=== PATIENT | female | born 1990 | race Caucasian/White ===

== ENCOUNTER 2019-02-23 11:13 | Emergency (ER) | payer OTHER ==
[2019-02-23] MEDS ORDERED: TETANUS & DIPHTHERIA TOX,ADULT 0.5 ML VIAL ONE (12:53)
[2019-02-23] MEDS ORDERED: LIDOCAINE 1% MPF 30 ML VIAL ONE (12:54)
--- NOTE | 2019-02-23 14:39 | ER ---
Nurse's Notes [facility] Name: Esperanza Shelton Age: 28 yrs Sex: Female : 1990 Arrival Date: 02/23/2019 Time: 11:16 Bed 9 Private MD: Diagnosis: Bitten by dog;Laceration without foreign body of foot Presentation: 02/23 11:43 Care prior to arrival: None. aa5 11:43 Presenting complaint: Patient states: "my friend's dog bit me about 30 minutes ago". aa5 Bite noted to left hand and left ankle, no active bleeding noted. Transition of care: patient was not received from another setting of care. Onset of symptoms was February 23, 2019. Risk Assessment: Do you want to hurt yourself or someone else? Patient reports no desire to harm self or others. Initial Sepsis Screen: Does the patient meet any 2 criteria? No. Patient's initial sepsis screen is negative. Does the patient have a suspected source of infection? No. Patient's initial sepsis screen is negative. 11:43 Acuity: DARRIN 4 aa5 11:43 Method Of Arrival: Wheelchair aa5 Triage Assessment: 11:55 General: Appears uncomfortable, Behavior is calm, cooperative. Pain: Complains of pain aa5 in left Achilles and left hand and left wrist Pain does not radiate. Pain currently is 9 out of 10 on a pain scale. Quality of pain is described as tender, throbbing, Is continuous. EENT: No signs and/or symptoms were reported regarding the EENT system. Neuro: Level of Consciousness is awake, alert, obeys commands, Oriented to person, place, time, situation. Cardiovascular: Patient's skin is warm and dry. Respiratory: Airway is patent Respiratory effort is even, unlabored, Respiratory pattern is regular, symmetrical. GI: No signs and/or symptoms were reported involving the gastrointestinal system. : No signs and/or symptoms were reported regarding the genitourinary system. Derm: Skin is pink, warm \\T\\ dry. Dog bite noted to palmar aspect of left hand, left wrist, and left achilles/left ankle. Laceration noted to left achilles. Cleaned with hydrogen peroxide and saline, dressed with gauze and Kerlix. Musculoskeletal: Range of motion: intact in all extremities. 12:38 Bite description: bite sustained to left hand and left ankle by a dog, tracey , aa5 animal information: vaccination(s) is current. 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 - Social history:: Smoking status: Patient uses tobacco products, smokes one pack cigarettes per day. - Ebola Screening: : No symptoms or risks identified at this time. Screenin:00 Abuse screen: Denies threats or abuse. Denies injuries from another. Nutritional hb screening: No deficits noted. Tuberculosis screening: No symptoms or risk factors identified. Fall Risk None identified. Assessment: 12:39 Reassessment: Pt reports dog bite occurred in [place], [place]. [place] [facility] was notified. . aa5 12:56 Reassessment: Patient is alert, oriented x 3, equal unlabored respirations, skin aa5 warm/dry/pink. PD called back and stated pt is to follow-up at PD after d/c home. Pt was notified and verbalizes understanding. . 14:00 Reassessment: Patient appears in no apparent distress at this time. Patient and/or hb family updated on plan of care and expected duration. Pain level reassessed. Patient is alert, oriented x 3, equal unlabored respirations, skin warm/dry/pink. 15:00 Reassessment: Patient appears in no apparent distress at this time. Patient and/or hb family updated on plan of care and expected duration. Pain level reassessed. Patient is alert, oriented x 3, equal unlabored respirations, skin warm/dry/pink. Vital Signs: 11:46 BP 127 / 87; Pulse 87; Resp 18 S; Temp 98.0(TE); Pulse Ox 100% on R/A; Weight 116.12 kg aa5 (R); Height 6 ft. 0 in. (182.88 cm) (R); Pain 9/10; 14:00 BP 126 / 76; Pulse 88; Resp 16; Pulse Ox 99% on R/A; hb 11:46 Body Mass Index 34.72 (116.12 kg, 182.88 cm) aa5 ED Course: 11:16 Patient arrived in ED. mr 11:43 Arm band placed on. aa5 11:45 Triage completed. aa5 11:55 Elissa Mahan, RN is Primary Nurse. aa5 11:56 Gissel Kenyon FNP-C [facility]. kb 11:56 Ruddy Chan MD is Attending Physician. kb 13:00 Patient has correct armband on for positive identification. Call light in reach. hb 15:20 No provider procedures requiring assistance completed. Patient did not have IV access hb during this emergency room visit. 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 Exp: aa5 08/31/2020. Lot #: [id number]. } Route: IM; Site: left deltoid; 13:30 Follow up: Response: No adverse reaction hb 13:10 Drug: Lidocaine (1 %) 1 vials Volume: 20 ml; Route: Infiltration; hb 13:30 Follow up: Response: No adverse reaction hb 15:19 Drug: Augmentin 875 mg Route: PO; hb 15:19 Follow up: Response: Medication administered at discharge. hb Outcome: 14:39 Discharge ordered by MD. kb 15:20 Discharged to home ambulatory, with family. hb 15:20 Condition: stable 15:20 Discharge instructions given to patient, family, Instructed on discharge instructions, follow up and referral plans. medication usage, wound care, Demonstrated understanding of instructions, follow-up care, medications, wound care, Prescriptions given X 1. 15:21 Patient left the ED. hb Signatures: Gissel Kenyon FNP-C [facility]-Marv Vinita Venegas Elissa Mahan, RN RN aa5 Alicia Hooper RN RN hb Corrections: (The following items were deleted from the chart) 11:54 11:43 Presenting complaint: Patient states: "my friend's dog bit me about 30 minutes aa5 ago". Bite noted to left hand, no active bleeding noted. aa5
--- NOTE | 2019-02-23 14:39 | EDPHYS ---
Physician Documentation [facility] Name: Esperanza Shelton Age: 28 yrs Sex: Female : 1990 Arrival Date: 02/23/2019 Time: 11:16 Bed 9 Private MD: ED Physician Ruddy Chan HPI: 02/23 13:37 This 28 yrs old Female presents to ER via Wheelchair with complaints of Dog kb Bite. 13:37 The patient was bitten on the left heel and left hand and left wrist, by a dog, in an kb unprovoked manner, at a friend's house, outdoors. Onset: The symptoms/episode began/occurred just prior to arrival. Secondary to the bite the patient reports an abrasion, multiple lacerations, that are deep, with the longest being 8 cm(s), and the total laceration length being 11 cm(s), pain, multiple puncture wounds, that are superficial. Associated signs and symptoms: Pertinent positives: tenderness. Severity of symptoms: At their worst the symptoms were moderate, in the emergency department the symptoms are unchanged. The patient has not experienced similar symptoms in the past. The patient has not recently seen a physician. 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 - Social history:: Smoking status: Patient uses tobacco products, smokes one pack cigarettes per day. - Ebola Screening: : No symptoms or risks identified at this time. ROS: 13:36 Constitutional: Negative for fever, chills, and weight loss, Neck: Negative for injury, kb pain, and swelling, Cardiovascular: Negative for chest pain, palpitations, and edema, Respiratory: Negative for shortness of breath, cough, wheezing, and pleuritic chest pain, Abdomen/GI: Negative for abdominal pain, nausea, vomiting, diarrhea, and constipation, Back: Negative for injury and pain, MS/Extremity: Negative for injury and deformity, Neuro: Negative for headache, weakness, numbness, tingling, and seizure. 13:36 Skin: Positive for abrasion(s), laceration(s), puncture, of the left heel and left hand and left wrist. Exam: 13:33 Constitutional: This is a well developed, well nourished patient who is awake, alert, kb and in no acute distress. Head/Face: Normocephalic, atraumatic. ENT: Nares patent. No nasal discharge, no septal abnormalities noted. Tympanic membranes are normal and external auditory canals are clear. Oropharynx with no redness, swelling, or masses, exudates, or evidence of obstruction, uvula midline. Mucous membranes moist. Neck: Trachea midline, no thyromegaly or masses palpated, and no cervical lymphadenopathy. Supple, full range of motion without nuchal rigidity, or vertebral point tenderness. No Meningismus. Chest/axilla: Normal chest wall appearance and motion. Nontender with no deformity. No lesions are appreciated. Cardiovascular: Regular rate and rhythm with a normal S1 and S2. No gallops, murmurs, or rubs. Normal PMI, no JVD. No pulse deficits. Respiratory: Lungs have equal breath sounds bilaterally, clear to auscultation and percussion. No rales, rhonchi or wheezes noted. No increased work of breathing, no retractions or nasal flaring. Abdomen/GI: Soft, non-tender, with normal bowel sounds. No distension or tympany. No guarding or rebound. No evidence of tenderness throughout. MS/ Extremity: Pulses equal, no cyanosis. Neurovascular intact. Full, normal range of motion. Neuro: Awake and alert, GCS 15, oriented to person, place, time, and situation. Cranial nerves II-XII grossly intact. Motor strength 5/5 in all extremities. Sensory grossly intact. Cerebellar exam normal. Normal gait. 13:33 Skin: injury, bite(s), superficial, deep, of the left wrist, left hand and left heel, abrasions and punctures to left hand and wrist, no repairs needed; left posterior heel has 8cm laceration and 3cm laceration that require repair. . Vital Signs: 11:46 BP 127 / 87; Pulse 87; Resp 18 S; Temp 98.0(TE); Pulse Ox 100% on R/A; Weight 116.12 kg aa5 (R); Height 6 ft. 0 in. (182.88 cm) (R); Pain 9/10; 14:00 BP 126 / 76; Pulse 88; Resp 16; Pulse Ox 99% on R/A; hb 11:46 Body Mass Index 34.72 (116.12 kg, 182.88 cm) aa5 Laceration: 14:52 Wound Repair of 8cm ( 3.1in ) subcutaneous laceration to left heel. Linear shaped.. kb Distal neuro/vascular/tendon intact. Anesthesia: Wound infiltrated with 4 mls of 1% lidocaine. Wound prep: Extensive cleansing with hibiclenz by me, Wound irrigation with saline by me, soaked foot in betadine/ns mixture prior to cleaning. Skin closed with 9 4-0 Prolene using simple sutures and sterile technique. Dressed with Neosporin, 4x4's. Patient tolerated well. 14:52 Wound Repair of 3cm ( 1.2in ) subcutaneous laceration to left heel. Linear shaped.. kb Distal neuro/vascular/tendon intact. Anesthesia: Wound infiltrated with 2 mls of 1% lidocaine. Wound prep: Extensive cleansing with hibiclenz by me, Wound irrigation with saline by me. Skin closed with 3 4-0 Prolene using simple sutures and sterile technique. Dressed with Neosporin, 4x4's. Patient tolerated well. MDM: 11:56 Patient medically screened. kb 13:33 Data reviewed: vital signs, nurses notes. Data interpreted: Pulse oximetry: on room air kb is 100 %. Interpretation: normal. 14:37 Counseling: I had a detailed discussion with the patient and/or guardian regarding: the kb historical points, exam findings, and any diagnostic results supporting the discharge/admit diagnosis, the need for outpatient follow up, a family practitioner, to return to the emergency department if symptoms worsen or persist or if there are any questions or concerns that arise at home. 02/23 12:26 Order name: Prolene, Sutures; Complete Time: 12:56 kb 02/23 12:26 Order name: Dressing - Wound; Complete Time: 15:19 kb 02/23 12:26 Order name: Gloves, Sterile; Complete Time: 12:56 kb 02/23 12:26 Order name: Setup Suture Tray; Complete Time: 12:56 kb 02/23 12:26 Order name: Misc. Order: report to PD; Complete Time: 12:36 kb 02/23 13:24 Order name: Misc. 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 Exp: aa5 08/31/2020. Lot #: [id number]. } Route: IM; Site: left deltoid; 13:30 Follow up: Response: No adverse reaction hb 13:10 Drug: Lidocaine (1 %) 1 vials Volume: 20 ml; Route: Infiltration; hb 13:30 Follow up: Response: No adverse reaction hb 15:19 Drug: Augmentin 875 mg Route: PO; hb 15:19 Follow up: Response: Medication administered at discharge. hb Disposition: 02/23/19 14:39 Discharged to Home. Impression: Bitten by dog, Laceration without foreign body of foot. - Condition is Stable. - Discharge Instructions: Animal Bite, [id number], Laceration Care, Adult, [id number]. - Prescriptions for Augmentin 875- 125 mg Oral Tablet - take 1 tablet by ORAL route every 12 hours for 10 days; 20 tablet. - Medication Reconciliation Form, Thank You Letter, Antibiotic Education, Prescription Opioid Use form. - Follow up: Emergency Department; When: As needed; Reason: Worsening of condition. Follow up: Private Physician; When: 2 - 3 days; Reason: Recheck today's complaints, Continuance of care, Re-evaluation by your physician. Addendum: 02/26/2019 10:07 Co-signature as Attending Physician, Ruddy Chan MD I agree with the assessment and k dr plan of care. Signatures: Gissel Kenyon, SERVICE DESK DIRECTOR-C SERVICE DESK DIRECTOR-Ckb Ruddy Chan MD MD [facility] Elissa Mahan, RN RN aa5 Alicia Hooper, ROXANNA RN Corrections: (The following items were deleted from the chart) 02/23 15:21 14:39 02/23/2019 14:39 Discharged to Home. Impression: Bitten by dog; Laceration hb without foreign body of foot. Condition is Stable. Forms are Medication Reconciliation Form, Thank You Letter, Antibiotic Education, Prescription Opioid Use. Follow up: Emergency Department; When: As needed; Reason: Worsening of condition. Follow up: Private Physician; When: 2 - 3 days; Reason: Recheck today's complaints, Continuance of care, Re-evaluation by your physician. kb
[2019-02-23] MEDS ORDERED: AMOX/K CLAV 875 MG TAB ONE (15:15)
[2019-02-23 20:11] VITALS: TEMP 98
[2019-02-23 20:13] VITALS: BP 126/76; O2SAT 99
== END 2019-02-23 15:21 | disposition home or self-care (01) ==
LOC: ER 11:13
PROC: 0JQR0ZZ Repair Left Foot Subcutaneous Tissue and Fascia, Open Approach (ICD-10-PCS; principal; 2019-02-23)
DX: S91.312A Laceration without foreign body, left foot, initial encounter (principal); S61.432A Puncture wound without foreign body of left hand, initial encounter; S61.532A Puncture wound without foreign body of left wrist, initial encounter; W54.0XXA Bitten by dog, initial encounter; Y93.89 Activity, other specified; Y92.89 Other specified places as the place of occurrence of the external cause; Z23 Encounter for immunization; F17.210 Nicotine dependence, cigarettes, uncomplicated
CPT/HCPCS: 90471; 90714; 99283